=== PATIENT | male | born 1975 | race Caucasian/White ===

== ENCOUNTER 2024-11-06 21:42 | Emergency (ER) | payer BC ==
[~2024-11-06] VITALS: Ht 190.5 cm; Wt 115.9 kg
[2024-11-06] MEDS ORDERED: NS 1,000 ML IV SCH (22:30)
[2024-11-06 22:50] LABS: BASO # 0.04 K/mm3 (0.02-0.10); EOS % 3.4 % (0.0-4.0); HEMATOCRIT 43.7 % (42.0-52.0); HEMOGLOBIN 15.2 g/dL (13.5-18.0); LYMPH# 2.14 K/mm3 (1.50-4.00); MEAN CELL VOLUME 96 fl (78-100); MEAN CORPUSCULAR HEMOGLOBIN 34 pg (27-31); MEAN CORPUSCULAR HGB CONC 35 g/dL (33-37); MEAN PLATELET VOLUME 10.1 fl (7.4-10.4); MONO # 0.54 K/mm3 (0.20-0.80); NEU # 2.97 K/mm3 (1.40-6.50); PLATELET COUNT 256 K/mm3 (130-400); RED BLOOD COUNT 4.54 M/mm3 (4.20-5.60); RED CELL DISTRIBUTION WIDTH 12.5 % (11.5-14.5); WHITE BLOOD COUNT 5.9 K/mm3 (4.8-10.8)
[2024-11-06 23:00] LABS: ALBUMIN 4.2 g/dL (3.5-5.0); CALCIUM 9.3 mg/dL (8.3-10.5)
[2024-11-06 23:04] LABS: TOTAL BILIRUBIN 0.4 mg/dL (0.2-1.2)
[2024-11-06 23:05] LABS: D-DIMER 0.31 mg/L FEU (0.15-0.50)
[2024-11-07 00:40] VITALS: BP 131/99
[2024-11-07 01:25] LABS: PH-URINE 6.5 (5.0 - 8.0); URINE APPEARANCE SLIGHTLY CLOUDY (CLEAR); URINE COLOR YELLOW (YELLOW); URINE GLUCOSE NEGATIVE (NEGATIVE); URINE KETONE 1+ (NEGATIVE); URINE PROTEIN(semi-quant) TRACE (NEGATIVE)
[2024-11-07 01:26] LABS: URINE BILIRUBIN NEGATIVE (NEGATIVE); URINE BLOOD NEGATIVE (NEGATIVE); URINE LEUKOCYTE ESTERASE NEGATIVE (NEGATIVE); URINE MUCUS PRESENT (NOT PRESENT); URINE NITRATE NEGATIVE (NEGATIVE)
== END 2024-11-07 00:42 | disposition home or self-care (01) ==
LOC: ED 21:42
PROVIDERS: Nurse Practitioner
DX: R55 Syncope and collapse (principal)
CPT/HCPCS: J7030